=== PATIENT | male | born 1950 | race Caucasian/White ===

== ENCOUNTER 2023-10-09 08:48 | Outpatient (RCR) | payer MEDICARE, OTHER, SELFPAY | END 2023-10-09 09:37 | disposition home or self-care (01) | LOC: ROT 08:48 | PROVIDERS: ATTENDING PHYSICIAN Psychiatry & Neurology Neurology | DX: I69.321 Dysphasia following cerebral infarction (principal); I69.318 Other symptoms and signs involving cognitive functions following cerebral infarction | CPT/HCPCS: 92507 ==

== ENCOUNTER → 2024-01-14 09:06 | Outpatient (REF) | payer MEDICARE, OTHER, SELFPAY ==
[2024-01-14 12:55] LABS: % Basophils 0.6 % (0-2); % Eosinophils 2.3 % (0-6); % Immature Granulocytes 0.4 % (0-0.5); % Lymphocytes 22.4 % (20.5-51.1); % Neutrophils 66.3 % (42.2-75.2); Absolute Eosinophils 0.1 10^3/uL (0-0.7); Absolute Lymphocytes 1.2 10^3/uL (1.2-3.4); Absolute Monocytes 0.4 10^3/uL (0.1-0.6); Absolute Neutrophils 3.4 10^3/uL (1.4-6.5); Hematocrit 48.2 % (39.0-52.0); Hemoglobin 16.7 g/dL (13.0-18.0); Mean Corp Hgb Conc. 34.6 g/dL (33.0-37.0); Mean Corpuscular Hgb 31.8 pg (27.0-31.0); Mean Corpuscular Volume 91.8 fL (80.0-94.0); Mean Platelet Volume 12.6 fL (7.4-10.4); Nucleated Red Blood Cells % 0 % (-); Platelet Count 155 10^3/uL (130-400); Red Blood Cell Count 5.25 10^6/uL (4.70-6.10); Red Cell Dist. Width 11.9 % (11.5-14.5); White Blood Cell Count 5.1 10^3/uL (4.8-10.8)
[2024-01-14 13:20] LABS: ALT (SGPT) 28 U/L (0-50); AST (SGOT) 29 U/L (17-59); Albumin 4.3 g/dl (3.5-5.0); Alkaline Phosphatase 55 U/L (38-126); Blood Urea Nitrogen 14 mg/dl (9-20); Calcium 9.4 mg/dl (8.4-10.2); Carbon Dioxide 29 mmol/L (22-30); Chloride 102 mmol/L (98-107); Glucose 86 mg/dl (70-99); HDL Cholesterol 38 mg/dl; LDL Cholesterol, Calculated 45 mg/dl; Sodium 138 mmol/L (135-145); Total Cholesterol 108 mg/dl (50-199); Total Protein 6.7 g/dl (6.3-8.2); Triglyceride 126 mg/dl (10-149); Very Low Density Lipoprotein 25 mg/dl (0-30); eGFR > 60.00
[2024-01-14 13:28] LABS: Potassium 4.6 mmol/L (3.5-5.1)
[2024-01-14 13:45] LABS: PSA, Total - Screen 2.43 ng/ml (0.0-4.0)
[2024-01-14 14:31] LABS: Glycohemoglobin (HgbA1c) 5.8 % (4.0-5.6)
[2024-01-16 15:30] LABS: Free Testosterone 111 pg/mL (47-244); Sex Hormone Binding Globulin 32 nmol/L (19-76); Testosterone, Bioavailable 302 ng/dL (131-682); Total Testosterone 558 ng/dL (300-720)
== END ==
LOC: HWLAB 09:06
PROVIDERS: ATTENDING PHYSICIAN Internal Medicine
DX: E78.2 Mixed hyperlipidemia (principal); E29.1 Testicular hypofunction; Z12.5 Encounter for screening for malignant neoplasm of prostate; R41.3 Other amnesia; R73.09 Other abnormal glucose
CPT/HCPCS: 36415; 80053; 80061; 83036; 84270; 84402; 84403; 85025; G0103

== ENCOUNTER → 2024-01-16 08:38 | Outpatient (REF) | payer MEDICARE, OTHER, SELFPAY | LOC: RAD 08:38 | PROVIDERS: ATTENDING PHYSICIAN Internal Medicine | DX: I66.02 Occlusion and stenosis of left middle cerebral artery (principal) | CPT/HCPCS: 70496; Q9967 ==

== ENCOUNTER → 2024-03-30 14:57 | Outpatient (REF) | payer MEDICARE, OTHER, SELFPAY | LOC: HWRAD 14:57 | PROVIDERS: ATTENDING PHYSICIAN Psychiatry & Neurology Neurology; FAMILY PHYSICIAN Internal Medicine; REFERRING PHYSICIAN Nurse Practitioner Acute Care | DX: I65.29 Occlusion and stenosis of unspecified carotid artery (principal) | CPT/HCPCS: 70496; Q9967 ==

== ENCOUNTER → 2024-07-14 09:09 | Outpatient (REF) | payer MEDICARE, OTHER, SELFPAY ==
[2024-07-14 12:29] LABS: Urine Albumin Negative (Neg - Trace); Urine Bilirubin Negative (Negative); Urine Character Clear (Clear); Urine Color Yellow; Urine Glucose Negative (Negative); Urine Ketone Negative (Negative); Urine Leukocyte Trace (Negative); Urine Nitrite Negative (Negative); Urine Occult Blood Negative (Negative); Urine Urobilinogen Negative (Neg - 1+); Urine pH 6.5 (5.0-9.0)
[2024-07-14 12:34] LABS: Hematocrit 47.7 % (39.0-52.0); Hemoglobin 16.3 g/dL (13.0-18.0); Mean Corp Hgb Conc. 34.2 g/dL (33.0-37.0); Mean Corpuscular Hgb 31.2 pg (27.0-31.0); Mean Corpuscular Volume 91.4 fL (80.0-94.0); Mean Platelet Volume 12.5 fL (7.4-10.4); Platelet Count 180 10^3/uL (130-400); Red Blood Cell Count 5.22 10^6/uL (4.70-6.10); Red Cell Dist. Width 12.2 % (11.5-14.5); White Blood Cell Count 5.4 10^3/uL (4.8-10.8)
[2024-07-14 12:40] LABS: ALT (SGPT) 30 U/L (0-50); AST (SGOT) 27 U/L (17-59); Albumin 4.3 g/dl (3.5-5.0); Alkaline Phosphatase 56 U/L (38-126); Blood Urea Nitrogen 13 mg/dl (9-20); Calcium 9.5 mg/dl (8.4-10.2); Carbon Dioxide 30 mmol/L (22-30); Chloride 103 mmol/L (98-107); Glucose 82 mg/dl (70-99); HDL Cholesterol 35 mg/dl; LDL Cholesterol, Calculated 54 mg/dl; Sodium 141 mmol/L (135-145); Total Bilirubin 1.1 mg/dl (0.2-1.3); Total Cholesterol 113 mg/dl (50-199); Total Protein 6.9 g/dl (6.3-8.2); Triglyceride 123 mg/dl (10-149); Very Low Density Lipoprotein 24 mg/dl (0-30); eGFR > 60.00
[2024-07-14 12:53] LABS: % Basophils 0.7 % (0-2); % Immature Granulocytes 0.2 % (0-0.5); % Lymphocytes 23.7 % (20.5-51.1); % Monocytes 7.4 % (1.7-9.3); Absolute Eosinophils 0.1 10^3/uL (0-0.7); Absolute Lymphocytes 1.3 10^3/uL (1.2-3.4); Absolute Monocytes 0.4 10^3/uL (0.1-0.6); Absolute Neutrophils 3.6 10^3/uL (1.4-6.5); Nucleated Red Blood Cells % 0 % (-)
[2024-07-14 12:55] LABS: Free T4 1.05 ng/dl (0.78-2.19); Vitamin D, 25-OH*** 69.1 ng/mL (30-80)
[2024-07-14 12:58] LABS: Urine Bacteria Few (Negative); Urine Red Blood Cell 0-2 /HPF (0-2)
[2024-07-14 13:02] LABS: Glycohemoglobin (HgbA1c) 5.5 % (4.0-5.6)
[2024-07-14 13:08] LABS: TSH 1.61 uIU/ml (0.47-4.68)
== END ==
LOC: HWLAB 09:09
PROVIDERS: ATTENDING PHYSICIAN Internal Medicine
DX: E55.9 Vitamin D deficiency, unspecified (principal); D63.8 Anemia in other chronic diseases classified elsewhere; E78.2 Mixed hyperlipidemia; E03.9 Hypothyroidism, unspecified; Z79.899 Other long term (current) drug therapy; R79.9 Abnormal finding of blood chemistry, unspecified; R79.89 Other specified abnormal findings of blood chemistry; R73.09 Other abnormal glucose; R82.90 Unspecified abnormal findings in urine
CPT/HCPCS: 36415; 80053; 80061; 81003; 81015; 82306; 83036; 84270; 84402; 84403; 84439; 84443; 85025

== ENCOUNTER → 2024-07-16 10:50 | Outpatient (REF) | payer MEDICARE, OTHER, SELFPAY | LOC: RAD 10:50 | PROVIDERS: ATTENDING PHYSICIAN Internal Medicine | DX: M25.562 Pain in left knee (principal) | CPT/HCPCS: 73564 ==

== ENCOUNTER → 2025-02-01 07:45 | Outpatient (REF) | payer MEDICARE, OTHER, SELFPAY ==
[2025-02-01 08:25] LABS: % Basophils 0.6 % (0-2); % Eosinophils 3.8 % (0-6); % Immature Granulocytes 0.2 % (0-0.5); % Lymphocytes 21.8 % (20.5-51.1); % Monocytes 7.3 % (1.7-9.3); % Neutrophils 66.3 % (42.2-75.2); Absolute Eosinophils 0.2 10^3/uL (0-0.7); Absolute Lymphocytes 1.1 10^3/uL (1.2-3.4); Absolute Monocytes 0.4 10^3/uL (0.1-0.6); Absolute Neutrophils 3.3 10^3/uL (1.4-6.5); Hematocrit 50.2 % (39.0-52.0); Mean Corp Hgb Conc. 33.9 g/dL (33.0-37.0); Mean Corpuscular Hgb 31.5 pg (27.0-31.0); Mean Corpuscular Volume 93.1 fL (80.0-94.0); Mean Platelet Volume 11.6 fL (7.4-10.4); Nucleated Red Blood Cells % 0 % (-); Platelet Count 155 10^3/uL (130-400); Red Blood Cell Count 5.39 10^6/uL (4.70-6.10); Red Cell Dist. Width 12.4 % (11.5-14.5)
[2025-02-01 08:39] LABS: Urine Albumin 2+ (Neg - Trace); Urine Bilirubin Negative (Negative); Urine Character Clear (Clear); Urine Color Yellow; Urine Glucose Negative (Negative); Urine Ketone Negative (Negative); Urine Leukocyte 3+ (Negative); Urine Nitrite Positive (Negative); Urine Occult Blood 1+ (Negative); Urine Urobilinogen Negative (Neg - 1+)
[2025-02-01 09:02] LABS: ALT (SGPT) 25 U/L (0-50); AST (SGOT) 24 U/L (17-59); Albumin 4.3 g/dl (3.5-5.0); Alkaline Phosphatase 53 U/L (38-126); Blood Urea Nitrogen 13 mg/dl (9-20); Calcium 9.8 mg/dl (8.4-10.2); Carbon Dioxide 28 mmol/L (22-30); Chloride 105 mmol/L (98-107); Glucose 98 mg/dl (70-99); HDL Cholesterol 40 mg/dl; LDL Cholesterol, Calculated 65 mg/dl; Potassium 4.2 mmol/L (3.5-5.1); Sodium 143 mmol/L (135-145); Total Bilirubin 1.2 mg/dl (0.2-1.3); Total Cholesterol 126 mg/dl (50-199); Total Protein 6.9 g/dl (6.3-8.2); Triglyceride 108 mg/dl (10-149); Very Low Density Lipoprotein 21 mg/dl (0-30); eGFR > 60.00
[2025-02-01 09:08] LABS: Vitamin D, 25-OH*** 62.7 ng/mL (30-80)
[2025-02-01 09:10] LABS: Urine Amorphous Seen; Urine Mucus Few; Urine Squamous Cell 0-2 /LPF (Few)
[2025-02-01 09:12] LABS: Urine Red Blood Cell 0-2 /HPF (0-2); Urine White Cell 21-25 /HPF (0-5)
[2025-02-01 09:14] LABS: Urine Bacteria Moderate (Negative)
[2025-02-01 09:21] LABS: PSA, Total - Screen 4.39 ng/ml (0.0-4.0); TSH 1.57 uIU/ml (0.47-4.68)
[2025-02-01 11:05] LABS: Glycohemoglobin (HgbA1c) 5.4 % (4.0-5.6)
[2025-02-02 13:49] LABS: % Free Testosterone 2.1 % (1.6-2.9); Free Testosterone 197 pg/mL (47-244); Sex Hormone Binding Globulin 35 nmol/L (19-76); Total Testosterone 961 ng/dL (300-720)
== END ==
LOC: REG 07:45
PROVIDERS: ATTENDING PHYSICIAN Internal Medicine
DX: E34.9 Endocrine disorder, unspecified (principal); E03.9 Hypothyroidism, unspecified; E78.2 Mixed hyperlipidemia; E29.1 Testicular hypofunction; M1A.9XX0 Chronic gout, unspecified, without tophus (tophi); D63.8 Anemia in other chronic diseases classified elsewhere; Z79.899 Other long term (current) drug therapy; Z12.5 Encounter for screening for malignant neoplasm of prostate
CPT/HCPCS: 36415; 80053; 80061; 81003; 81015; 82306; 83036; 84270; 84402; 84403; 84443; 85025; G0103

== ENCOUNTER → 2025-03-09 09:17 | Outpatient (REF) | payer MEDICARE, OTHER, SELFPAY | LOC: REG 09:17 | PROVIDERS: ATTENDING PHYSICIAN Internal Medicine | DX: R97.20 Elevated prostate specific antigen [PSA] (principal) | CPT/HCPCS: 36415; 84153; 84154 ==

== ENCOUNTER → 2025-09-09 08:03 | Outpatient (REF) | payer MEDICARE, OTHER, SELFPAY ==
[2025-09-09 09:34] LABS: Urine Character Clear (Clear)
[2025-09-09 10:07] LABS: ALT (SGPT) 17 U/L (0-50); AST (SGOT) 20 U/L (17-59); Albumin 4.0 g/dl (3.5-5.0); Alkaline Phosphatase 58 U/L (38-126); Blood Urea Nitrogen 17 mg/dl (9-20); Calcium 9.1 mg/dl (8.4-10.2); Carbon Dioxide 31 mmol/L (22-30); Chloride 102 mmol/L (98-107); Glucose 81 mg/dl (70-99); HDL Cholesterol 33 mg/dl; LDL Cholesterol, Calculated 54 mg/dl; Potassium 4.7 mmol/L (3.5-5.1); Sodium 136 mmol/L (135-145); Total Protein 6.9 g/dl (6.3-8.2); Uric Acid 5.9 mg/dl (3.5-8.5); Very Low Density Lipoprotein 25 mg/dl (0-30); eGFR > 60.00
[2025-09-09 10:29] LABS: TSH 2.91 uIU/ml (0.47-4.68)
[2025-09-09 11:06] LABS: Urine Squamous Cell 16-20 /LPF (Few); Urine White Cell 16-20 /HPF (0-5)
== END ==
LOC: RAD 08:03
PROVIDERS: ATTENDING PHYSICIAN Internal Medicine
DX: R35.1 Nocturia (principal); E78.2 Mixed hyperlipidemia; E03.9 Hypothyroidism, unspecified; M10.9 Gout, unspecified
CPT/HCPCS: 36415; 76857; 80053; 80061; 81003; 81015; 84443; 84550; 87086

== ENCOUNTER → 2025-09-27 11:21 | Outpatient (REF) | payer MEDICARE, OTHER, SELFPAY | LOC: CLAB 11:21 | PROVIDERS: ATTENDING PHYSICIAN Student in an Organized Health Care Education/Training Program | DX: N32.89 Other specified disorders of bladder (principal) | CPT/HCPCS: 88112 ==